=== PATIENT | female | born 1970 | race Two or more races ===

== ENCOUNTER 2020-06-11 20:34 | Emergency (ER) | payer OTHER, MEDICAID ==
[~2020-06-11] VITALS: Ht 162.6 cm; Wt 66.2 kg
[2020-06-11 20:50] VITALS: BP 120/68
[2020-06-11] MEDS ORDERED: HYDROcodone-ACET 5/325MG TAB PO ONE (23:30)
== END 2020-06-12 00:16 | disposition home or self-care (01) ==
LOC: ER 20:34
DX: S16.1XXA Strain of muscle, fascia and tendon at neck level, initial encounter (principal); M54.5 Low back pain; M62.838 Other muscle spasm; V89.2XXA Person injured in unspecified motor-vehicle accident, traffic, initial encounter; Y93.I9 Activity, other involving external motion; Y92.410 Unspecified street and highway as the place of occurrence of the external cause; Y99.8 Other external cause status
CPT/HCPCS: 70450; 72125; 72128

== ENCOUNTER 2025-02-11 18:00 | Emergency (ER) | payer MEDICAID ==
[~2025-02-11] VITALS: Ht 142.2 cm; Wt 67.5 kg
--- NOTE | 2025-02-11 18:57 | ED.PDOC ---
Jaimet. trauma (HPI) HPI Comments 54 year old female presents to the ED with a chief complaint of fall onset today (02/11/25). Patient went to get mail when she tripped, fell and landed on RT side. Patient is currently experiencing RT sided headache, RT neck pain, bilateral knee pain, RT hand 5th finger pain, nose pain with bleeding, and upper lip pain. Patient was able to control nosebleed prior to ED arrival. Denies any PMHx as well as LOC, nausea, vomiting, diarrhea, chest pain, shortness of breath, dizziness. No other symptoms or modifying factors present at this time. Chief Complaint: Fall Injury Time Seen by MD: 18:28 Primary Care Provider: none Reviewed notes: Medications, Allergies Allergies: Coded Allergies: No Known Drug Allergy (Verified Allergy, Unknown, 06/11/20) Information Source: Patient, Spouse Mode of Arrival: Ambulatory Severity: Moderate Timing: Hours Duration: Since onset Prehospital treatment: None Location: (R) Foot, Head, (L) Knee, (R) Knee, Mouth, Neck, Nose Mechanism: Fall Associated signs and symtoms: Headache Vital Signs Vital Signs Date Time Temp Pulse Resp B/P (MAP) Pulse Ox O2 Delivery O2 Flow Rate FiO2 02/11/25 18:32 97.9 100 19 150/72 (98) 96 97.9 Physical Exam General: Awake, alert and oriented. No acute distress. Skin: Skin in warm, dry and intact. Appropriate color for ethnicity. HEENT: The head is normocephalic and atraumatic. Nasal bone swelling and abrasion. No septal hematoma. No active epistaxis. Conjunctivae are clear without exudates or hemorrhage. Sclera is non-icteric. EOM are intact. PERRLA No signs of nystagmus. Eyelids are normal in appearance without swelling or lesions. Oral mucosa is pink and moist. Approximately 1 cm laceration inner upper lip. No active bleeding. No dental avulsion. No loose teeth. Neck: The neck is supple with normal range of motion. No C-spine tenderness. No JVD. Cardiac: Heart rate and rhythm are normal. No murmurs, gallops, or rubs are auscultated. Respiratory: No signs of respiratory distress. Lung sounds are clear in all lobes bilaterally without rales, rhonchi, or wheezes. Abdominal: Abdomen is soft, non-tender without distention. Bowel sounds are present and normoactive in all four quadrants. Extremities: Right pinky with swelling and decreased range of motion. Tender to palpation. Bilateral knees tender to palpation. Mild abrasion over right knee. Patient is able to ambulate without difficulty. No knee swelling or effusion. Normal range of motion bilateral knees. Neurological: The patient is awake, alert and oriented to person, place, and time with normal speech. Speech is clear. There is no facial asymmetry. Normal hiyrym-bw-kowt test. Normal gait. Psychiatric: Appropriate mood and affect. Good judgement and insight. Review of Systems: REVIEW OF SYSTEMS: No fever, no chills, or fatigue HEENT: No sore throat, no earache, no congestion, no neck pain. Positive epistaxis (resolved), positive nose pain Cardiac: No chest pain. No palpitations. Lungs: No shortness of breath, no cough. GI: No nausea, no vomiting, no diarrhea, no constipation, no abdominal pain : No dysuria, frequency, or urgency. No hematuria. Musculoskeletal: Bilateral knee pain, right pinky pain. Skin: No rash, no itching. Neuro: Positive headache, no dizziness, no weakness, no loss of consciousness Past Medical History PAST MEDICAL HISTORY: Denies Surgical History (Other): liver cyst removal, breast tumor removal [employer] History: No Pertinent [employer] History Family History Family History: Reviewed,noncontributory to illness, No family hx of Cancer, No family hx of DM, No family hx of Heart dangelo, No family hx of HTN, No family hx ofKidney dangelo, No family hx of Liver dangelo, No family hx of Lung dangelo, No family hx of Stroke Social History Smoker: Non-Smoker Alcohol: Denies ETOH Use Drugs: Denies Drug Use Lives In: Home Was a procedure done? Was a procedure done?: No Differential Diagnosis Multiple Trauma: Other (Differential diagnoses considered include but are not limited to closed head injury, skull fracture, TBI, long bone fracture, rib fracture, pneumothorax, spinal fracture, spinal injury, cardiac contusion, organ laceration, pelvic fracture, laceration, soft tissue injury, vascular injury, other) X-Ray, Labs, Meds, VS Vital Signs Date Time Temp Pulse Resp B/P (MAP) Pulse Ox O2 Delivery O2 Flow Rate FiO2 02/11/25 18:32 97.9 100 19 150/72 (98) 96 97.9 Images Reviewed?: Images reviewed and evaluated by me (Independent interpretation of : CT max face- no nasal fracture, CT head- no intracranial hemorrhage) Time of 1ST Reevaluation: 18:58 Reevaluation 1ST: Unchanged Patient Education/Counseling: Treatment, Need For Follow Up Family Education/Counseling: Treatment, Need For Follow Up Departure 1 Departure Time of Disposition: 19:56 Impression: Primary Impression: Fall Additional Impressions: Head injury Lip laceration Disposition: 01 HOME / SELF CARE / HOMELESS Condition: Stable Additional Instructions: INSTRUCCIONES DE LEROY DE Urgencias Instrucciones: Ella atentamente todas las instrucciones proporcionadas en esperanza paquete. Aunque le hayan dado el leroy del Departamento de Emergencias, esto no significa que tenga un "certificado de buena abbie". Hoy no se boo realizado ningn diagnstico definitivo para rafael sntomas. Es posible que ests en proceso de desarrollar kristin enfermedad grave. Es por eso que debe regresar al servicio de urgencias sin falta si presenta algn sntoma nuevo o que empeora (especialmente si rafael sntomas incluyen dolor en el pecho, dificultad para respirar, dolor abdominal, fiebre, dolor de jorge luis, confusin, dificultad para kathy o caminar). Aplique hielo en las articulaciones doloridas y tome Tylenol segn sea necesario. Tambin es muy importante que consulte a un mdico de atencin primaria dentro de los prximos 3 a 5 guerin para realizar un seguimiento. Si no puede conseguir kristin alondra, regrese al servicio de urgencias para kristin nueva evaluacin. Lesin en la jorge luis: Instrucciones de cuidado Descripcin general La mayora de las lesiones en la jorge luis son leves. Los golpes, meyers y raspaduras en la jorge luis y la tony suelen cicatrizar vonda y pueden tratarse igual que las lesiones en otras partes del cuerpo. Aunque es poco frecuente, de vez en cuando surge un problema ms grave despus de llegar a casa. Por eso, conviene estar atento a los sntomas kylah genie o dos guerin. El seguimiento es fundamental para merrill tratamiento y seguridad. Asegrese de programar y acudir a todas rafael citas, y llame a merrill mdico si tiene algn problema. Tambin es recomendable estar al tanto de los resultados de rafael pruebas y llevar kristin lista de los medicamentos que ivelisse. Plastic Installer puedes cuidarte en casa? Siga las instrucciones de merrill mdico. El mdico le indicar si necesita que alguien lo vigile de cerca kylah las prximas 24 horas o ms. Tmatelo con calma kylah los prximos guerin o ms si no te sientes vonda. Pregntele a merrill mdico cundo puede volver a realizar actividades sedrick conducir un automvil, andar en bicicleta u operar maquinaria. Cundo debes pedir ayuda? Llame al 911 en cualquier momento que considere que necesita atencin de emergencia. Por ejemplo, llame si: Tienes kristin convulsin. Te desmayaste (perdiste el conocimiento). Ests confundido o no puedes mantenerte despierto. Tienes un dolor de jorge luis que empeora y no desaparece. Tiene nuevos cambios en la visin o kristin pupila (la parte yue en el medio del magnus) es ms deondre que la otra. Tiene dificultad para hablar, problemas de equilibrio o disminucin de la coordinacin. Llame a merrill mdico ahora o busque atencin mdica inmediata si: Tiene vmitos nuevos o peores. Te sientes menos alerta. Tienes nueva debilidad o entumecimiento en alguna parte de tu cuerpo. Tiene sntomas nuevos, sedrick pensamiento confuso o cambios de humor. Preste atencin a los cambios en merrill abbie y asegrese de comunicarse con merrill mdico si: Christiano en la boca: Instrucciones de cuidado Un christiano en la boca puede estar en los labios. Tambin podra estar dentro de la boca. Muchas veces, la herida se kanika abierta y no se necesitan puntos. Ksenia a veces, estos ayudan a cicatrizar o a detener el sangrado. En algunos casos, el mdico querr realizar pruebas para detectar otros prob lemas, sedrick kristin lesin dental. Estas pruebas incluyen pruebas de imagen sedrick kristin radiografa o kristin tomografa computarizada. Si tiene puntos de sutura, estos suelen disolverse solos. Sin embargo, a veces es necesario que un mdico los retire. Los puntos suelen retirarse en unos 5 guerin, ksenia esto puede depender del tipo de christiano. El mdico lo boo examinado cuidadosamente, ksenia podran surgir problemas ms adelante. Si nota algn problema o sntomas nuevos, busque atencin mdica de inmediato . El seguimiento es fundamental para merrill tratamiento y seguridad. Asegrese de programar y acudir a todas rafael citas, y llame a merrill mdico si tiene algn problema. Sukh es recomendable estar al tanto de los resultados de rafael pruebas y llevar kristin lista de los medicamentos que ivelisse. Plastic Installer puedes cuidarte en casa? Si merrill mdico le recet antibiticos, tmelos segn las indicaciones. No los deje de nina solo porque se sienta mejor. Debe completar el tratamiento con antibiticos. Si tiene dolor, tome un analgsico de venta serjio, sedrick acetaminofn (Tylenol), ibuprofeno (Advil, Motrin) o naproxeno (Aleve). Sea precavido con los medicamentos. Ella y siga todas las instrucciones de la etiqueta. Puede ser til refrescar el interior de la boca con un trozo de hielo o kristin paleta helada saborizada. Si el christiano est dentro de la boca: Enjuguese la boca con agua tibia con lina florian despus de las comidas. Los enjuagues con agua salada pueden ayudar a cicatrizar. Para preparar kristin solucin de agua salada para enjuagarse la boca, mezcle 1 cucharadita de ilna en 1 taza de agua tibia. Coma alimentos blandos que miryam fciles de tragar. Evite los alimentos que puedan picar, sedrick los salados o picantes, las frutas o jugos ctricos y los tomates. Intente utilizar un medicamento tpico, sedrick Orabase, para reducir el dolor en la boca. Cundo debes pedir ayuda? Llame al 911 en cualquier momento que considere que necesita atencin de emergencia. Por ejemplo, llame si: Tienes dificultad para respirar. Llame a merrill mdico ahora o busque atencin mdica inmediata si: Tienes problemas para tragar. El christiano empieza a sangrar. Es normal que supure un poco de hermilo. Tiene sntomas de infeccin, sedrick: Aumento del dolor, hinchazn, calor o enrojecimiento alrededor del christiano. Shannan sawyer que salen del christiano. Pus saliendo del christiano. Kristin fiebre. Preste atencin a los cambios en merrill abbie y asegrese de comunicarse con merrill mdico si: Notas un problema nuevo, sedrick kristin lesin en un diente. No mejoras sedrick esperabas Crditos de Christiano en la boca: Instrucciones de cuidado Actualizado al: 2023 Autor: Personal de [employer] Junta de revisin clnica Toda la educacin de [employer] es revisada por un equipo que incluye mdicos, enfermeras, profesionales avanzados, dietistas registrados y otros profesionales de la abbie. e-Prescriptions Acetaminophen (Acetaminophen Er) 650 Mg Tab 650 MG PO TIDPRN PRN for 5 Days, #15 TAB Prov: BHAVNA CARTWRIGHT MD 02/11/25 Comments 54-year-old female who presents with mechanical fall resulting in head injury. Imaging negative for acute fracture or intracranial hemorrhage. Patient's neuro logically intact. Patient felt stable for discharge home to follow up with primary care provider. Patient well-appearing, nontoxic. Advised prompt follow-up with PCP, return to the ED with any new, worsening or concerning symptoms. Extensive evaluation was performed in attempt to identify or rule out: (See differential diagnosis section) The following tests were ordered, and results were reviewed by me and discussed with patient: (See diagnostic results section) The following test were independently interpreted by me: CT head, CT max face I reviewed and agreed with the following test results read by other providers: CT head, CT max face I reviewed the following notes from the pt's past medical encounters: Encounter 05/2020 for back pain Additional information was gathered from interviewing the following independent historians: Patient's family member at bedside Discussion of management or test interpretation with external physician/other qualified health child care centre director: N/A Decision regarding hospitalization or escalation of hospital level of care: Risks and benefits of admission for further treatment of patient's condition was considered however due to patient's stable condition patient will be discharged to follow up closely or return to care for worsening of condition or inability to follow up. Critical Care Note Critical Care Time?: No Stability Stability form required: No I personally scribed for BHAVNA CARTWRIGHT MD ([email or web address]) on 02/11/25 at 18:57. Electronically submitted by Carol Mandel ([email or web address]). BHAVNA CARTWRIGHT MD Feb 11, 2025 18:57
--- NOTE | 2025-02-11 19:25 | DVH ---
CLINICAL INDICATION: Right pinky swelling TECHNIQUE: 3 radiographic views of the right 5th digit were obtained. Comparison: None FINDINGS/IMPRESSION: There is no evidence of acute fracture or dislocation. The visualized joint space is well maintained. The alignment is anatomical. There is no radiopaque foreign body.
--- NOTE | 2025-02-11 19:28 | DVH ---
Procedure: CT HEAD WITHOUT CONTRAST Study Date and Requested Time: 02/11/2025 06:51 PM History: Head injury, severe VARGAS Comparison: HEAD WITHOUT CONTRAST on DOS: 06/11/20 Dose: CTDI: 51.12 mGy DLP: 905.27 mGycm Technique: Multiplanar images obtained through the brain without intravenous contrast. Findings: Normal brain volume and formation. No hemorrhages, masses, mass effect, midline shift, herniation or cytotoxic edema following a large v ascular territory. No intra-axial or extra-axial fluid collections. No evidence of hydrocephalus. The basal cisterns are patent. The pituitary gland, sella and parasellar regions are unremarkable. The cerebellar tonsils are in nor mal position. The cerebellum is unremarkable. The orbits and globes are unremarkable. The paranasal sinuses and mastoids are clear. There are no wo rrisome calvarial lesions. Minimal left forehead soft tissue edema. Impression: No evidence of acute intracranial abnormality. If symptom persists, consider MRI for further evaluati on.
--- NOTE | 2025-02-11 19:37 | DVH ---
HISTORY: Fall, nose injury TECHNIQUE: Nonenhanced axial images through the facial bones with coronal and sagittal MPR. Radiation Dose Information: CT Dose: CTDI volume is 64.89 mGy. Dose-length product is 1257.14 mGy*cm COMPARISON: None FINDINGS: Soft tissues: Unremarkable Mandible: Unremarkable Maxilla: Unremarkable Zygomatic arches: Unremarkable Nasal bone: Unremarkable Orbits: Unremarkable Paranasal sinuses/Mastoid air cells/Middle ear cavities: Unremarkable IMPRESSION: No evidence of facial fracture. Radiation optimization: All CT scans at this facility use at least one of these dose optimization junior hniques: automated exposure control mA and/or kV adjustment per patient size (includes targeted exam s where dose is matched to clinical indication) or iterative reconstruction.
[2025-02-11] MEDS ORDERED: ACET650T12 PO (20:00)
[2025-02-11 21:17] VITALS: BP 130/77; PULSE 68; RESP 16; TEMP 98.8; O2SAT 96
[2025-02-11] MEDS: KETOROLAC TROMETH 30 MG/ML 1ML VIAL IM ONE (21:19)
[2025-02-11] MEDS: ACETAMINOPHEN 500 MG TAB or CAP PO ONE (21:20)
== END 2025-02-11 21:24 | disposition home or self-care (01) ==
LOC: ER 18:00
DX: S01.511A Laceration without foreign body of lip, initial encounter (principal); M54.2 Cervicalgia; M79.644 Pain in right finger(s); M25.561 Pain in right knee; M25.562 Pain in left knee; Z98.890 Other specified postprocedural states; W01.0XXA Fall on same level from slipping, tripping and stumbling without subsequent striking against object, initial encounter; Y93.89 Activity, other specified; Y92.89 Other specified places as the place of occurrence of the external cause; Y99.8 Other external cause status
CPT/HCPCS: 70450; 70486; 73140; 96372; 99285; J1885

== ENCOUNTER → 2025-08-27 | Day surgery (SDC) | payer MEDICAID ==
[2025-08-24 11:36] LABS: Hematocrit 44.5 % (36.0-46.0); Hemoglobin 15.2 g/dL (12.2-16.2); Mean Corpuscular Hemoglobin 31.7 pg (28.0-32.0); Mean Corpuscular Volume 92.6 fL (80.0-100.0); Nucleated Red Blood Cells % 0.1 %
[2025-08-24 11:49] LABS: INR 0.95 (0.9-1.15); Partial Thromboplastin Time 25.5 SEC (24.5-34.5); Prothrombin Time 10.1 sec (9.3-11.8)
[2025-08-24 11:51] LABS: Alanine Aminotransferase 36 U/L (7-40); Alkaline Phosphatase 82 U/L (46-116); Anion Gap 15 (5-15); BUN/Creatinine Ratio 6.5 (10.0-20.0); Calcium 10.1 mg/dL (8.7-10.4); Carbon Dioxide 21 mmol/L (20-31); Chloride 106 mmol/L (98-107); Glucose 92 mg/dL (74-106); Potassium 4.2 mmol/L (3.5-5.1); Sodium 142 mmol/L (136-145); Total Protein 8.1 g/dL (5.7-8.2)
[2025-08-24 11:52] LABS: Bilirubin, Total 0.4 mg/dL (0.2-1.0)
[2025-08-24 11:59] LABS: Albumin 4.9 g/dL (3.2-4.8); Blood Urea Nitrogen 6 mg/dL (9-23)
[2025-08-24 14:23] LABS: Urine Protein, UAD Negative (Negative)
[~2025-08-27] VITALS: Ht 142.2 cm; Wt 66.7 kg
[~2025-08-27] MED LIST: ACET650T12 PO; HYDROmorphone HCL 2 MG/ML VL/or syr IV PRN; KETAMINE 50mg/ML 1ml syringe ONE; KETOROLAC TROMETH 30 MG/ML 1ML VIAL IV ONE; LIDOCAINE 1% (LOCAL ANESTH.) PF 5ml SDV ONE; METOCLOPRAMIDE HCL 5MG/ml INJ 2ml VIAL IV PRN; MIDAZOLAM HCL 2MG/2ML 2ml VIAL (1mg/ml) ONE; MORPHINE SULFATE 4 MG/ML SYR/VIAL IV PRN; MORPHINE SULFATE INJ 2 MG/ml SYRG IV PRN; ONDANSETRON HCL 4 MG/2 ML VIAL ONE; PANT40TA2 PO; PROPOFOL 10 MG/ML 20 ML IV ONE; SODIUM CHLORIDE LOCK 10 ML ONE; fentaNYL CITRATE 100 MCG/2 ML VL ONE
--- NOTE | 2025-08-27 08:41 | DVHHP2 ---
GI H&P Pre-Op Assessment Date: 08/27/25 Chief complaint: colon cancer screening, abdominal pain HPI: per clinic note Past medical history: per clinic note Past surgical history: per clinic note Family history: per clinic note Physical exam: General: NAD, AAOX3 HEENT: PERRL, no scleral icterus, normal hearing, gums without lesions or bleeding, oropharynx clear without erythema or exudate. Neck: Supple without enlargement of the thyroid, or lymphadenopathy. Chest: Normal size and shape, no tenderness, lung galvan clear to auscultation and percussion, nonlabored breathing. Heart: RRR, no murmur Abdomen: non-distended, no tenderness to palpation, +BS, no hepatosplenomegaly Extremities: no edema Neurological: CN II-XII intact, sensation intact in all extremities, 5+ strength in all extremities Skin: No rashes, No jaundice Assessment: - colon cancer screening - abdominal pain Plan: - EGD - Colonoscopy - Risks (bleeding, infection, perforation, reaction to sedation medications and cardiopulmonary arrest) and benefit of the procedure were explained to patient. Patient agrees to undergo the procedure. MAURILIO DAVIS MD Aug 27, 2025 08:41
[2025-08-27] MEDS: LIDOCAINE VISCOUS 2% 15ML UD ONE (08:47)
[2025-08-27 09:08] VITALS: PULSE 124; RESP 17; TEMP 97.2
--- NOTE | 2025-08-27 09:13 | DVHOP2 ---
Operative Report DATE OF OPERATION: 08/27/25 PROCEDURE: Upper Endoscopy. PREOPERATIVE INDICATION: The patient is a 55 -year-old female undergoing endoscopy for abdominal pain. POSTOPERATIVE DIAGNOSES: 1. Mild gastritis PROCEDURE PERFORMED BY: Jose Miguel Lyn SCOPE: Olympus videoendoscope. ASA CLASS: 2 PREOPERATIVE MEDICATIONS: MAC with Dr Mireles PROCEDURE IN DETAIL: After obtaining an informed consent, the patient was placed on her back. The patient was then sedated with the above medications. A bite block was placed between her teeth. The endoscope was then passed through the oropharynx, into the esophagus, and through the stomach and pylorus up to the second and third part of the duodenum. The duodenum was normal in appearance. There was mild gastritis. Gastric biopsies were obtained using cold forceps. The GE junction was normal in appearance at 34 cm. The esophagus was normal in appearance. The endoscope was then withdrawn. The patient tolerated the procedure well without difficulty. COMPLICATIONS : None SPECIMENS: Gastric biopsies DISPOSITION: D/C to home PLAN: 1. Await for biopsy result 2. Continue with Protonix and famotidine. JOSE MIGUEL LYN MD Aug 27, 2025 09:13
--- NOTE | 2025-08-27 09:14 | DVHOP2 ---
Operative Report DATE OF OPERATION: 08/27/25 PROCEDURE: Colonoscopy. PREOPERATIVE INDICATION: The patient is a 55 -year-old female undergoing colonoscopy for colon cancer screening. POSTOPERATIVE DIAGNOSES: 1. 2 mm ascending colon polyp was removed with cold biopsy forceps. 2. 3 mm sigmoid colon polyps was removed with cold biopsy forceps. 3. Internal hemorrhoids PROCEDURE PERFORMED BY: Jose Miguel Lyn M.D. SCOPE: Olympus videocolonoscope. ASA CLASS: 2 PREOPERATIVE MEDICATIONS: MAC with Dr Mireles PROCEDURE IN DETAIL: After obtaining an informed consent, the patient was placed on left lateral decubitus position. She was then sedated with the above medications. A rectal examination was performed that was normal. The colonoscope was then passed through the anus into the rectosigmoid and through the descending, transverse, and ascending colon up to the cecum with visualization of the appendiceal orifice, base of the cecum and the ileocecal valve. A 2 mm ascending colon polyp was removed with cold biopsy forceps. A 3 mm sigmoid colon polyps was removed with cold biopsy forceps. There were internal hemorrhoids. The colonoscope was then withdrawn. The patient tolerated the procedure well without difficulty. WITHDRAWAL TIME: 8 minutes QUALITY OF THE PREP: [place] Bowel Prep score: 7 COMPLICATIONS : None SPECIMENS: Colon polyps DISPOSITION: D/C to home PLAN: 1. Repeat colonoscopy base on biopsy result JOSE MIGUEL LYN MD Aug 27, 2025 09:14
--- NOTE | 2025-08-27 09:15 | DVHDS2 ---
Physician Discharge Progress N Final Diagnosis: Gastritis Colon polyps, internal hemorrhoids Operations or Procedures: Operations or Procedures EGD with cold biopsy. Colonoscopy with cold biopsy polypectomy Condition on Discharge: Good Disposition: Home Discharge Instructions: Diet: Regular Activity: No Restrictions, As Tolerated Medications: Resume with previous home medications Follow Up Care: Discharge Statement: "Patient was advised to return to the ER or call 911 if any headaches, dizziness, shortness of breath, chest pain, abdominal pain, bleeding, fevers, or worsening of medical condition. Patient was counseled about treatment plan, medications, possible side effects, patientverbalized understanding. All questions were answered to the best of my ability. This discharge took greater then 30 minutes in planning, reviewing documentation, counseling the patient, and discussing with other team members." MAURILIO DAVIS MD Aug 27, 2025 09:15
[2025-08-27 09:55] VITALS: BP 125/68; PULSE 66; RESP 12; O2SAT 97
== END | disposition home or self-care (01) ==
LOC: GI 07:49
PROVIDERS: ATTEND Internal Medicine Gastroenterology
DX: R10.9 Unspecified abdominal pain (principal); D12.2 Benign neoplasm of ascending colon; D12.5 Benign neoplasm of sigmoid colon; K63.5 Polyp of colon; K64.8 Other hemorrhoids; K29.50 Unspecified chronic gastritis without bleeding; K21.9 Gastro-esophageal reflux disease without esophagitis; E66.9 Obesity, unspecified; Z68.33 Body mass index [BMI] 33.0-33.9, adult; Z79.899 Other long term (current) drug therapy; Z85.3 Personal history of malignant neoplasm of breast; Z90.49 Acquired absence of other specified parts of digestive tract; Z98.890 Other specified postprocedural states; Z88.8 Allergy status to other drugs, medicaments and biological substances
CPT/HCPCS: 36415; 43239; 45380; 80053; 81001; 81025; 85025; 85610; 85730; 88305; 88313; 88342; J2250; J2405; J2704; J3010; J7030